=== PATIENT | male | born 1980 | race Caucasian/White ===

== ENCOUNTER 2017-12-28 10:39 | Emergency (ER) | payer BC ==
[~2017-12-28] VITALS: Ht 185.4 cm; Wt 131.8 kg
[2017-12-28 10:41] VITALS: TEMP 96.9
[2017-12-28] MEDS ORDERED: AMOXICILLIN 50500 MG PO (10:53)
[2017-12-28] MEDS ORDERED: ANTIVERT 25MG25 MG PO (11:51)
[2017-12-28 14:39] VITALS: BP 141/93; PULSE 88
== END 2017-12-28 14:37 | disposition home or self-care (01) ==
LOC: COL.ER 10:39 → EDBD 10:39 → COL.ER 14:37
DX: S09.90XA Unspecified injury of head, initial encounter (principal); R11.2 Nausea with vomiting, unspecified; R42 Dizziness and giddiness; W20.8XXA Other cause of strike by thrown, projected or falling object, initial encounter; Y92.89 Other specified places as the place of occurrence of the external cause; Y99.0 Civilian activity done for income or pay
CPT/HCPCS: J2405

== ENCOUNTER 2017-12-29 13:09 | Outpatient (RCR) | payer OTHER ==
[~2017-12-29 13:09] MED LIST: AMOXICILLIN 50500 MG PO; ANTIVERT 25MG25 MG PO
== END 2018-01-02 09:49 | disposition home or self-care (01) ==
LOC: WSOH 13:09
DX: S00.93XA Contusion of unspecified part of head, initial encounter (principal); S06.0X1A Concussion with loss of consciousness of 30 minutes or less, initial encounter; W20.8XXA Other cause of strike by thrown, projected or falling object, initial encounter; Y92.812 Truck as the place of occurrence of the external cause; Y99.0 Civilian activity done for income or pay; Z88.1 Allergy status to other antibiotic agents